=== PATIENT | male | born 1990 | race Two or more races ===

== ENCOUNTER 2017-07-21 16:47 | Emergency (ER) | payer MEDICAID ==
[~2017-07-21] VITALS: Ht 175.3 cm; Wt 68.5 kg
[2017-07-21 19:37] VITALS: BP 111/78
== END 2017-07-21 20:07 | disposition home or self-care (01) ==
LOC: ER 16:59
DX: R51 Headache (principal); R42 Dizziness and giddiness; F17.210 Nicotine dependence, cigarettes, uncomplicated
CPT/HCPCS: 70450